=== PATIENT | female | born 1960 | race Caucasian/White ===

== ENCOUNTER 2016-06-17 19:29 | Inpatient (IN) | payer OTHER ==
[~2016-06-17] VITALS: Ht 170.2 cm; Wt 122.4 kg
[~2016-06-17 19:29] MED LIST: ASPI325T32 PO; ATEN50TA PO; CALC-1034 PO; IBUP400T22 PO; KLO5T PO; LISI-567 PO; OMPR20CCR PO; POLY17PO6 PO; PROP20TA5 PO; PRV40T PO; TRIA1TAB2 PO; VENL75CA PO
[2016-06-17 19:32] VITALS: BP 140/98; PULSE 106; RESP 18; O2SAT 94
[2016-06-17 20:09] LABS: BASOPHILS % (AUTO) 0.2 % (0-3); EOSINOPHILS % (AUTO) 0.8 % (0-5); MONOCYTES % (AUTO) 7.6 % (4-12); Mean Corpuscular Hemoglobin 25.8 pg (27.0-35.0); Mean Corpuscular Volume 81.1 fL (81-100); Platelet Count 439 bil/L (150-400)
--- NOTE | 2016-06-17 20:49 | ED.REPORT ---
HPI-Abd Pain F 40 and Over Date of Service Jun 17, 2016 ED Provider: Dr. Jose Ramon Mcdonald MD A 56 year old female with a history of diverticulitis, hypertension, hyperlipidemia, GERD, and complete heart block s/p dual chamber pacemaker presents to the ED complaining of abdominal pain that began 2 days ago. Associated symptoms include nausea, 2 episodes of vomiting, diarrhea, abdominal bloating, productive cough with white sputum, dark stools, and lower back discomfort. The pain initially began as a "shooting" pain in her back and radiated forward to her abdomen. Patient denies any previous similar symptoms and her symptoms have become increasingly worse since onset. She is currently taking iron supplements. Patient denies hematochezia or hematemesis. Nursing Notes Stated Complaint: ABDOMINAL PAIN Chief Complaint: Female Abdominal Pain Nursing Notes Reviewed: Yes Allergies: Coded Allergies: No Known Allergies (Unverified , 02/24/16) Scheduled Aspirin (Aspirin) 81 Mg Tablet 81 MG PO DAILY Atenolol (Atenolol) 25 Mg Tablet 25 MG PO DAILY Cholecalciferol (Vitamin D3) (Vitamin D) 1,000 Unit Tablet 3,000 UNIT PO HS Escitalopram Oxalate (Lexapro) 5 Mg Tablet 5 MG PO DAILY Lisinopril / HCTZ 20-12.5 mg (Lisinopril / HCTZ 20-12.5 mg) 1 Each Tablet 1 EACH PO DAILY Omeprazole (Omeprazole) 20 Mg Capsule.dr 20 MG PO DAILY Pravastatin (Pravachol) 40 Mg Tablet 40 MG PO HS Scheduled PRN Clonazepam (Clonazepam) 0.5 Mg Tablet 0.5 MG PO DAILY PRN PRN For Anxiety Miscellaneous Medications Calcium Carbonate/Vitamin D3 (Calcium 500 + Vit D Caplet) 1 Each Tablet 1 EACH PO General Time Seen by MD: 20:48 Chief Complaint Abdominal pain Hx Obtained From: Patient Arrived By: Walk-in Sudden in Onset?: No Onset Occurred: 2 days ago Symptom Duration: Since onset Progression since Onset: Gradually worsening Location: : Diffuse Quality: Sharp Radiation: : Back Severity: Current: Mild Severity: Maximum: Moderate Associated with: Reports: Back pain, Diarrhea, Nausea, Vomiting, Denies: Hematemesis, Hematochezia, Melena Pertinent Negative: Pt denies other symptoms Recent Healthcare: No recent doctor visit, No recent hospitalization Risk Factors )( AAA Risk Stratification Risk factors reviewed Past Medical History Past Medical History Hiatal hernia Hyperlipidemia Hypertension Anxiety GERD Depression Complete heart block s/p Dual chamber pacemaker Obesity Congenital heart defect: repaired age 5 Obstructive Sleep Apnea Past Surgical History Partial hysterectomy (10/2009) Open heart surgery to repair VSD (5 years old) Dual chamber pacemaker placed September 25, 2012 Smoking History Never Smoker Social History Alcohol Use: Denies alcohol use Drug Use: Denies drug use Other Social History: Good social support, Local resident Ambulatory Status Independent Review of Systems Constitutional: Denies: Chills, Fever Respiratory: Denies: Shortness of breath Cardiovascular: Denies: Chest pain GI: Reports: Abdominal pain, Diarrhea, Melena (Dark Stools ), Nausea, Vomiting , Denies: Hematemesis, Hematochezia Musculoskeletal: Reports: Back pain Complete sys rev & neg: except as marked. Neurologic: Denies: Change LOC Physical Exam Vital Signs Vital Signs (First) Date Time Temp Pulse Resp B/P Pulse Ox O2 Delivery O2 Flow Rate FiO2 06/17/16 19:32 36.5 106 18 140/98 94 Room Air Initial VS: Reviewed Extremities: Vascular intact, Neuro intact, No swelling, No tenderness Skin: Warm, Dry, No cyanosis Neurologic: Alert, Oriented, Nonfocal Psychiatric: Mood/affect normal, Behavior normal, Normal thought content General/Constitutional: Awake, Alert, No acute distress Respiratory / Chest: Atraumatic, Breath sounds NL, Breath sounds = bilat Cardiovascular: Heart rate NL, Regular rhythm, Heart sounds NL Abdomen: Atraumatic, Soft Tenderness/Guarding/Rebound: Positive: Guarding involuntary, Rebound diffuse, Tender diffuse ABDOMEN: Obese Back: Atraumatic, Inspection NL Head / Eyes: Atraumatic, Normocephalic Interpretation & Diagnostics Lab Results Interpretation Result Diagram: 06/17/16199906/17/161999 Test 06/17/16 20:00 06/17/16 21:41 White Blood Count 11.8th/mm3 (3.8-10.1) Red Blood Count 5.08mil/mm3 (3.90-5.20) Hemoglobin 13.1g/dL (12.0-15.6) Hematocrit 41.2% (35.0-46.0) Mean Corpuscular Volume 81.1fL (81-100) Mean Corpuscular Hemoglobin 25.8pg (27.0-35.0) Mean Corpuscular Hemoglobin Concent 31.8% (32.0-37.0) Red Cell Distribution Width 18.7% (12.3-15.4) Platelet Count 439bil/L (150-400) Neutrophils (%) (Auto) 67.0% (40-74) Lymphocytes (%) (Auto) 24.2% (14-46) Monocytes (%) (Auto) 7.6% (4-12) Eosinophils (%) (Auto) 0.8% (0-5) Basophils (%) (Auto) 0.2% (0-3) Sodium Level 139mEq/L (134-144) Potassium Level 4.0mEq/L (3.5-5.2) Chloride Level 98mEq/L (97-108) Carbon Dioxide Level 27mmol/L (18-29) Blood Urea Nitrogen 14mg/dL (6-24) Creatinine 1.06mg/dL (0.57-1.00) Estimat Glomerular Filtration Rate 77mL/min (>59) Glucose Level 140mg/dL (60-99) Calcium Level 10.4mg/dL (8.5-10.1) Magnesium Level 2.2mg/dL (1.6-2.6) Total Bilirubin 0.4mg/dL (0.0-1.2) Aspartate Amino Transf (AST/SGOT) 16U/L (0-50) Alanine Aminotransferase (ALT/SGPT) 14U/L (0-32) Alkaline Phosphatase 162U/L (25-150) Total Protein 7.9g/dL (6.4-8.4) Albumin 4.2g/dL (3.4-5.0) Lipase 29U/L (13-60) Hold Fried Top Tube Received (Received) Urine Color Dark yellow (YELLOW) Urine Appearance Hazy (CLEAR,HAZY) Urine pH 7.0 (5.0-8.0) Urine Specific [place] 1.015 (1.003-1.035) Urine Protein Negativemg/dL (NEG,TRACE) Urine Glucose (UA) Negativemg/dL (NEGATIVE) Urine Ketones Negativemg/dL (NEGATIVE) Urine Occult Blood Negative (NEGATIVE) Urine Nitrite Negative (NEGATIVE) Urine Bilirubin Negative (NEGATIVE) Urine Urobilinogen Normalmg/dL (NORMAL) Urine Leukocyte Esterase Negative (NEGATIVE) Urine RBC 0-2/hpf (0-2) Urine WBC 0-5/hpf (0-5) Urine Epithelial Cells Moderate/hpf (NONE-MOD) Urine Crystals None seen (NONE SEEN) Urine Bacteria Few/hpf (NONE-FEW) Urine Hyaline Casts Occasional/lpf (NONE) Urine Granular Casts None seen (NONE SEEN) Urine Waxy Casts None seen (NONE SEEN) Urine Red Blood Cell Casts None seen (NONE SEEN) Urine White Blood Cell Casts None seen (NONE SEEN) Urine Mucus Present (None Seen) Urine Trichomonas None seen (NONE SEEN) Urine Yeast None (NONE SEEN) Urinalysis Comment None Urine Culture Reflexed Not indicated CT Abd / Pelvis Interpretation IMPRESSION: 1. Sigmoid diverticulitis with mild inflammatory changes. 2. Normal callber appendix. No free air, abscess, or bowel obstruction. Hiatal hernia 3. 10 x 6 mm indeterminate right adrenal nodule. Correlate with any prior to document long-term stability Study type: Abdominal CT IV contrast, Abdom CT oral contrast Interpretation / Wet Read by: Interpret - Radiologist ([facility] ) Re-Eval/Medical Decision Med Decision/Clinical Course 56-year-old presents with abdominal pain that is clinically consistent with diverticulitis, and in fact has diverticulitis in her sigmoid colon with moderate stranding but no perforation and no free air. She is in considerable pain, has a difficult time getting food and fluids down, and will benefit from inpatient hospitalization to establish control. Begun with Levaquin and Flagyl. Admitted in stable condition. Re-Evaluation/Progress : Time of Eval: 23:29 Patient Status: Condition improved Re-Evaluation/Progress Note: Patient is rechecked. She is informed of her lab results, CT results and diagnosis. She is given the option to discharge or admit and patient states that she would prefer to be admitted. All questions are addressed. She understands and agrees with the treatment plan. Consultation : Referral / Consult Name: Patricia Benoit DO Consulted With: Hospitalist Call Returned at: 00:03 [place] Custodian: Will see patient, Agrees with eval, Agrees with plan, Accepts admit Counseled Regarding: Diagnosis, Lab results, Need for admission Discharge & Departure Primary Impression: Diverticulitis Diverticulitis site: unspecified part of intestinal tract Diverticulitis bleeding: without bleeding Diverticulitis complication: without perforation or abscess Qualified Code: K57.92 - Diverticulitis of intestine, part unspecified, without perforation or abscess without bleeding Disposition: ADMITTED TO HOSPITAL Discharge Condition All VS Reviewed: Yes Condition: Stable Referrals: OTHER,PHYSICIAN (PCP) (Family) Johnnyibneel Attestation Portions of this note were transcribed by Miguel Muhammad. I, Dr. Mcdonald personally performed the history, physical exam and medical decision-making; I reviewed and confirmed the accuracy of the information in the transcribed note. Signed by: Radha Sahni, 06/18/16 0000. Jose Ramon Mcdonald MD Jun 17, 2016 20:49 MIGUEL MUHAMMAD Jun 17, 2016 20:57
[2016-06-17 20:55] LABS: Magnesium 2.2 mg/dL (1.6-2.6)
[2016-06-17] MEDS ORDERED: 0.9% Sodium Chloride 1,000 ML IV SCH (21:00)
[2016-06-17] MEDS ORDERED: Ondansetron 2 mg/mL 2 mL Inj IVPUSH ONE (21:00)
[2016-06-17] MEDS ORDERED: HYDROmorphone 1 mg/mL Inj IVPUSH PRN (21:00)
[2016-06-17 22:25] LABS: APPEARANCE,URINE HAZY (CLEAR,HAZY); COLOR,URINE DARK YELLOW (YELLOW)
[2016-06-17 22:26] LABS: OCCULT BLOOD,URINE NEGATIVE (NEGATIVE); UROBILINOGEN,URINE NORMAL (NORMAL)
[2016-06-17 23:16] VITALS: BP 105/74; PULSE 101; RESP 20; O2SAT 94
[2016-06-17] MEDS ORDERED: metroNIDAZOLE Inj 500 MG in IV Premix 1 EACH IV ONE (23:35)
[2016-06-17] MEDS ORDERED: levoFLOXacin Inj 750 MG in IV Premix 1 EACH IV ONE (23:35)
[2016-06-18] VITALS (9 sets, daily range): BP systolic 92–130; BP diastolic 54–81; PULSE 78–110; RESP 14–18; O2SAT 94–97
[2016-06-18] MEDS ORDERED: Alum-Mag Hydrox-Simeth 30 mL Suspension PO PRN (00:10)
[2016-06-18] MEDS ORDERED: Polyethylene Glycol (PEG) 17 Gm Powder PO PRN (00:10)
[2016-06-18] MEDS ORDERED: Ondansetron 2 mg/mL 2 mL Inj IVPUSH PRN (00:10)
[2016-06-18] MEDS ORDERED: ATEN25TA PO (00:58)
[2016-06-18] MEDS ORDERED: ASPI-973 PO (00:58)
[2016-06-18] MEDS ORDERED: OMEP20CA11 PO (00:59)
[2016-06-18] MEDS ORDERED: ESCI5TAB PO (01:00)
[2016-06-18] MEDS ORDERED: LISI1TAB9 PO (01:00)
[2016-06-18] MEDS ORDERED: CALC-78 PO (01:01)
[2016-06-18] MEDS ORDERED: CHOL100043 PO (01:02)
--- NOTE | 2016-06-18 01:29 | NUR ---
admission patient admitted to [facility] rom 246-2. alert and oriented x3. anxious at times. med rec completed. npo. given mouth moisturizer. reviewed fall precautions. verbalized understanding. steady on feet. assisted to bathroom. rates pain to right lateral abd. 5. tolerable. plan to request pain medication from dr paz. no questions at this time. Addendum: 06/18/16 at 0209 by NADEEM WOLFE RN notified Dr Paz no telemetry available at this time patient placed on bedside pulse oximetry. medicated with dilaudid one mg slow iv push started on ns iv fluids care on going.
[2016-06-18] MEDS: 0.9% Sodium Chloride 1,000 ML IV SCH ×3 (02:07→17:17)
[2016-06-18] MEDS: HYDROmorphone 1 mg/mL Inj IVPUSH PRN ×2 (02:07→11:04)
--- NOTE | 2016-06-18 02:15 | NUR ---
sleep apnea patiient reports eligio. does not use machine at home. makes her "caustrophobic." placed on 2 liters nc. 95%. bedside pulse oximetry.
--- NOTE | 2016-06-18 04:15 | NUR ---
tele placed on tele box. SR rate 98
--- NOTE | 2016-06-18 04:23 | PCM.HPMED ---
Subjective Date of Service Jun 18, 2016 Primary Provider: Admitting Physician: Patricia Benoit DO Primary Care Physician: Other,Physician Attending Physician: Patricia Benoit DO Chief Complaint: Abdominal pain History of Present Illness: Patient is a 56-year-old female with history of diverticulitis, hypertension, dyslipidemia, complete heart block s/p PPM and GERD presenting with abdominal pain. Patient reports onset of abdominal pain about two days ago in conjunction with flu-like symptoms - headache, fatigue and some chills. She reports similar pain in the past when she had an episode of diverticulitis. Patient states the pain is diffuse throughout her abdomen with radiation to her back and left flank. Patient also endorses associated bloating, diarrhea, nausea, decreased appetite and emesis. Patient also reports the development of a "new vein" on her abdomen from her retching. She otherwise denies fever, hematochezia, melena , dizziness, lightheadedness, chest pain. Patient states the pain progressively worsened prompting her to visit the ED for further evaluation. CT abdomen and pelvis reads sigmoid diverticulitis with mild inflammatory changes. Patient was started on levofloxacin and metronidazole for suspected diverticulitis. In the ED, vitals: temp 36.5, HR 106, RR 18 satting 94% on room air, BP 140/98. Notable labs: WBC 11.8, creatinine 1.06, calcium 10.4. Review of Systems: A comprehensive review of systems was conducted with the patient and found to be negative except as above in the History of Present Illness. Allergies Coded Allergies: No Known Allergies (Unverified , 02/24/16) Home Medications Atenolol 25mg daily ASA 81mg daily Lisinopril-HCTZ/10mg-25mg daily Omeprazole 20mg daily Pravastatin 40mg daily Clonazepam 0.5mg PRN (max 10 doses per month) Calcium 500mg/Vitamin D 200iu Lexapro 5mg daily PMH History of diverticulitis Hypertension Dyslipidemia GERD Heart block s/p PPM Anxiety . Surgical History Hysterectomy Ventricular septal defect repair Pacemaker placement Family History Mother in her 40s from aneurysm Father in his 60s with ESRD Sister with breast cancer Social History Occupation: Unemployed, former cook Hx Alcohol Use: Yes (occasional) Hx Substance Use: No Hx Tobacco Use: No Smoking Status: Never Smoker Living Arrangement: Other (with Boyfriend) Exam Vital Signs Vital Sign - Last Date Time Temp Pulse Resp B/P Pulse Ox O2 Delivery O2 Flow Rate FiO2 06/18/16 01:08 36.9 110 18 104/70 95 Room Air Intake and Output 06/17/16 06/17/16 06/18/16 Cumulative From/Thru 15:00 23:00 07:00 06/17/16 21:45 - 06/18/16 01:11 Intake Total 1000 ml 1000 ml Balance 1000 ml 1000 ml Intake IV Total 1000 ml 1000 ml Exam General: Patient lying comfortably in bed. No acute distress, well-developed, well-nourished, appropriately interactive HEENT: Normocephalic, atraumatic. External ears without defect. Pupils equal, round, and reactive to light. Anicteric sclerae, moist conjunctivae, and no lid lag. Oropharynx free of erythema and cobble stoning with moist mucosa. Neck: Supple. No lymphadenopathy or thyromegaly. Cardiovascular: Regular rate and rhythm with no murmurs, rubs, or gallops appreciated Pulmonary: Clear to auscultation bilaterally with no crackles, wheezes, or rhonchi. Normal respiratory effort with no use of accessory muscles. Abdomen: Bowel tones present. Obese, soft, nondistended. Tenderness to palpation diffusely. Extremities: No clubbing, cyanosis, edema, or lymphadenopathy appreciated. Skin: Normal temperature, turgor, and texture; no rash, ulcers, or subcutaneous nodules appreciated. Neurological: Cranial nerves grossly intact. Psychiatric: Normal mood and affect. Alert and oriented to person, place, and time. Lab and Diagnostics Result Diagram: 06/17/16199906/17/161999 X-Rays, CTs and MRIs Exam date 06/17/2016 CT ABDOMEN AND PELVIS CONCLUSION: 1. Sigmoid diverticulitis with mild inflammatory changes 2 .Normal caliber appendix. No free air, abscess, or bowel obstruction. Hiatal hernia. 3. 10x6 mm indeterminate right adrenal nodule. Correlate with any prior to document long-term stability. Radiologist: Jorge Rascon MD Assessment & Plan Patient is a 56-year-old female with history of diverticulitis, hypertension, dyslipidemia, complete heart block s/p PPM and GERD presenting with abdominal pain and admitted for diverticulitis. 1. Acute diverticulitis. Present on admission. Active -Patient reports prior episode of diverticulitis -CT abdomen pelvis reads sigmoid diverticulitis with mild inflammatory changes -NPO -NS 125cc/hr -Pain control with Dilaudid PRN -Levofloxacin and metronidazole -Follow clinically 2. Acute kidney injury. Present on admission. Active -Creatinine 1.06 -Likely secondary to decreased intake and emesis -IV fluids -Avoid nephrotoxins -Follow with CMP 3. Hypercalcemia, acute. Present on admission. Active -Ca 10.4 -Possible hemoconcentration, iatrogenic (hydrochlorothiazide), hyperparathyroidism, hypervitaminosis -Repeat CMP. If elevation persists then consider PTH level 4. Hypertension, chronic. Present on admission -Patient currently normotensive -Holding lisinopril-HCTZ due to CHARLEY, holding atenolol given relatively low BP -Follow with vitals and restart antihypertensive with resolution of CHARLEY 5. Dyslipidemia, chronic. Present on admission -Continue with home dose statin 6. GERD, chronic. Present on admission -Continue home dose PPI 7. Anxiety, chronic. Present on admission -Clonazepam 0.5mg daily PRN 8. Complete heart block s/p dual chamber PPM -Presumed stable 9. Obstructive sleep apnea, chronic. Present on admission -Patient does not use CPAP due to discomfort Patient Status: Patient is admitted under inpatient status with expected length of stay greater than 2 midnights due to severity of presenting symptoms, risk of adverse event, and complexity of treatment plan. VTE Prophylaxis: Sub-Q Heparin (Unfractionated) Resuscitation Status: CPR: Attempt Resuscitation Attending Statement The patient was seen and examined together with house staff on 06/18/2016 and I agree with the history, exam and plan as outlined in the note above. Geo Paz DO Jun 18, 2016 04:02 Patricia Benoit DO Jun 18, 2016 04:54
--- NOTE | 2016-06-18 05:22 | NUR ---
urine output: patient with low urine output. 100ml. bladder scanner shows 0 residual volume. bp 94/54 hr [address] Geo Paz. received order for ns 500ml bolus. care ongoing.
[2016-06-18] MEDS ORDERED: 0.9% Sodium Chloride 500 ML IV ONE ×2 (05:35→11:55)
--- NOTE | 2016-06-18 07:56 | DRSVH ---
PROCEDURE: CT ABDOMEN AND PELVIS WITH CONTRAST ([id number]) INDICATIONS: pain, probable diverticulitis TECHNIQUE: After the administration of intravenous contrast, 5 mm thick sections acquired from the diaphragm to the symphysis. 5 mm coronal and sagittal reformats were acquired. For radiation dose reduction, the following was used: automated exposure control, adjustment of mA and/or kV according to patient siz e. COMPARISON: [facility], CT, ABDOMEN/PELVIS WITH CONTRAST, 07/01/2014, 22:20. FINDINGS: Image quality: Excellent. ABDOMEN: Lung bases: Lung bases are clear. Heart size is normal. Solid organs: Liver and spleen are normal in size and enhancement. Gallbladder is unremarkable. Bi liary system is non dilated. Pancreas enhances normally. Right adrenal nodule, unchanged from 07/01/14 . Kidneys demonstrate normal size and enhancement, without hydronephrosis. Peritoneum and bowel: Bowel loops are nonobstructed. There is a thickened loop of distal descending/ proximal sigmoid colon with diverticula and surrounding inflammatory change. There is no abscess form ation or free air identified. There several scattered lymph nodes, subcentimeter in size identified i mmediately superior to the area of inflammation. Nodes and vessels: No retroperitoneal or mesenteric adenopathy by size criteria. Aorta and inferior vena cava are normal in size. Miscellaneous: No ventral hernias. Prominent hiatal hernia. PELVIS: Genitourinary: Bladder wall thickness is normal. Miscellaneous: No inguinal hernias or adenopathy. Bones: No suspicious bony lesions. No vertebral body compression fractures. IMPRESSION: 1. Focal area of thickened distal descending/proximal sigmoid colonic bowel with diverticula and heriberto colonic thickening most suggestive of colitis secondary to diverticulitis. No peridiverticular absces s. As noted above, there are pericolonic lymph nodes identified. These could be reactive in nature. However, repeat imaging is recommended after appropriate therapy to document resolution and exclude u nderlying presence of neoplasm. Dictated by: Katherin Sommer M.D. on 06/18/2016 at 7:50 Approved by: Katherin Sommer M.D. on 06/18/2016 at 7:55
[2016-06-18] MEDS: Heparin 5,000 Unit/mL Inj SUBQ SCH ×2 (08:04→16:00)
[2016-06-18] MEDS: metroNIDAZOLE Inj 500 MG in IV Premix 1 EACH IV SCH ×2 (08:04→16:01)
[2016-06-18] MEDS: Pantoprazole 40 mg ER24 Tablet PO SCH (08:04)
[2016-06-18] MEDS ORDERED: Influenza (Adult) Vaccine 0.5 mL Syringe IM ONE (08:30)
[2016-06-18 09:12] LABS: BASOPHILS % (AUTO) 0.2 % (0-3); EOSINOPHILS % (AUTO) 0.4 % (0-5); MONOCYTES % (AUTO) 9.1 % (4-12); Mean Corpuscular Hemoglobin 25.7 pg (27.0-35.0); Mean Corpuscular Volume 82.9 fL (81-100); NEUTROPHILS % (AUTO) 74.2 % (40-74); Platelet Count 353 bil/L (150-400)
--- NOTE | 2016-06-18 10:40 | NUR ---
Morning Rounds Staffed patient's case with case management and Dr. Segura. Plan to change patient admission status from inpatient to observation. No plan for discharge discussed, MD to assess patient.
--- NOTE | 2016-06-18 13:15 | NUR ---
Social Work: Screening Data: Pt is a 56 y/o female admitted for acute diverticulitis. Pt's PCP is not listed, pt's insurance is [employer]. Pt's readmit score not listed. EMR reviewed. No d/c planning needs anticipated at this time. SPEECH PATHOLOGY TEACHER will continue to follow if needs arise. Assessment: Pt who is independent at baseline. Plan: Pt will d/c home via POV when medically stable. No d/c planning needs anticipated at this time. SPEECH PATHOLOGY TEACHER will continue to follow if needs arise. SILVIA Lisa
--- NOTE | 2016-06-18 15:58 | NUR ---
Elevated Temp Contacted Dr. Segura with the following cook page: Patient's current temp is 37.5, she does not have any Tylenol ordered at this time. Just making you aware of temp trending up, please advise of any med changes. Thank you. Amina MON
--- NOTE | 2016-06-18 16:58 | NUR ---
Temp Recheck Contacted Dr. Segura with the following cook page: Just to make you aware, recheck of patient's temp since administering Tylenol is 100.3. Thank you. Amina MON
[2016-06-18] MEDS: levoFLOXacin Inj 750 MG in IV Premix 1 EACH IV SCH (23:44)
[2016-06-19] VITALS (7 sets, daily range): BP systolic 123–157; BP diastolic 79–94; PULSE 79–99; RESP 16–18; O2SAT 93–98
[2016-06-19] MEDS: Heparin 5,000 Unit/mL Inj SUBQ SCH ×3 (01:26→16:21)
[2016-06-19] MEDS: metroNIDAZOLE Inj 500 MG in IV Premix 1 EACH IV SCH ×3 (01:34→16:22)
[2016-06-19] MEDS: 0.9% Sodium Chloride 1,000 ML IV SCH ×3 (01:38→21:51)
--- NOTE | 2016-06-19 03:53 | NUR ---
Anxiety/Temp/Tele C/o anxiety and received PRN Clonazepam with a good effect per Pt. Temp 36.9 afebrile. Tele V-paced with PVCs HR 80s. Will continue to monitor for s/sx of anxiety, telemetry, and an increase in temperature.
[2016-06-19 07:37] LABS: BASOPHILS % (AUTO) 0.1 % (0-3); EOSINOPHILS % (AUTO) 1.6 % (0-5); MONOCYTES % (AUTO) 6.8 % (4-12); Mean Corpuscular Hemoglobin 25.7 pg (27.0-35.0); Mean Corpuscular Volume 82.6 fL (81-100); NEUTROPHILS % (AUTO) 64.9 % (40-74); Platelet Count 307 bil/L (150-400)
[2016-06-19] MEDS: Pantoprazole 40 mg ER24 Tablet PO SCH (07:42)
--- NOTE | 2016-06-19 08:58 | NUR ---
Temp Recheck Patient's temp was 37.5 earlier, then Tylenol was given. Recheck approx an hour after Tylenol is 37.0.
--- NOTE | 2016-06-19 10:45 | NUR ---
Morning Rounds Staffed patient's case with Dr. Segura and case management. Dr. Segura to see patient this morning and will possibly advance patient's diet today. No plan to discharge at this time.
--- NOTE | 2016-06-19 11:53 | PCM.PNMED ---
Subjective Date of Service Jun 19, 2016 Subjective Patient notes feeling somewhat improved this morning, she was having more sweats and chills earlier in the evening but those resolved overnight and this morning have not returned. She still has minimal appetite and significant abdominal tenderness but this too has improved since her admission. Denies any nausea or vomiting. He is also not have bowel movements and Monday. Chest pain shortness of breath other acute complaints at this time. Exam Vital Signs Vital Sign - Last Date Time Temp Pulse Resp B/P Pulse Ox O2 Delivery O2 Flow Rate FiO2 06/19/16 09:39 80 06/19/16 08:57 37.0 06/19/16 07:36 16 135/88 97 Room Air Intake and Output 06/18/16 06/18/16 06/19/16 Cumulative From/Thru 15:00 23:00 07:00 06/17/16 21:45 - 06/19/16 06:32 Intake Total 1376 ml 1464 ml 4264 ml Output Total 700 ml 950 ml 1750 ml Balance 676 ml 514 ml 2514 ml Intake Oral 0 ml 100 ml 100 ml IV Total 1376 ml 1344 ml 4144 ml Tube Irrigant 20 ml 20 ml Output Urine Total 700 ml 950 ml 1750 ml General: Alert, Oriented X3, Cooperative, Mild Distress, Other (obese female lying in hospital bed without diaphoresis/sweats, or chills) Eyes: PERRLA Mouth: Mucous Membr Moist/[place] Chest & Lungs: Clear to auscultation & percussion Cardiovascular: Regular Rate/Rhythm Abdomen: Tender, Non-distended, Other (hypoactive bowel sounds without overt organomegaly noted on palpation. Abdomen is obese) Extremities: No cyanosis/clubbing/edma bilat Neurological: Grossly Neurologically Intact IVs and Medications Medications Reviewed: Medications were reviewed in detail Lab and Diagnostics Result Diagram: 06/19/1671606/19/16716 X-Rays, CTs and MRIs Exam date 06/17/2016 CT ABDOMEN AND PELVIS CONCLUSION: 1. Sigmoid diverticulitis with mild inflammatory changes 2 .Normal caliber appendix. No free air, abscess, or bowel obstruction. Hiatal hernia. 3. 10x6 mm indeterminate right adrenal nodule. Correlate with any prior to document long-term stability. Radiologist: Jorge Rascon MD Assessment & Plan Patient is a 56-year-old female with history of diverticulitis, hypertension, dyslipidemia, complete heart block s/p PPM and GERD presenting with abdominal pain and admitted for diverticulitis. 1. Acute diverticulitis, associated with inability to tolerate by mouth , mild leukocytosis , tachycardia , elevated temperature :Present on admission. Active -Patient reports prior episode of diverticulitis -CT abdomen pelvis reads sigmoid diverticulitis with mild inflammatory changes -Advancing diet to clears, plan to advance further as tolerated. -Decrease NS to 100cc/hr -Pain control with Dilaudid PRN -Levofloxacin and metronidazole continued IV -Follow clinically 2. Acute kidney failure Present on admission. Active -Creatinine had subsequently increased to 1.6, has now normalized with aggressive IV hydration. -Likely secondary to decreased intake and emesis -IV fluids continue as diet advanced -Avoid nephrotoxins -Follow with CMP 3. Hypercalcemia, acute. Present on admission. Active - Noted on admission likely secondary to hemoconcentration now resolved with hydration. 4. Hypertension, chronic. Present on admission -Patient currently normotensive -Continue Holding lisinopril-HCTZ due to CHARLEY, holding atenolol given relatively low BP -Follow with vitals and restart antihypertensive with resolution of CHARLEY 5. Dyslipidemia, chronic. Present on admission -Continue with home dose statin 6. GERD, chronic. Present on admission -Continue home dose PPI 7. Anxiety, chronic. Present on admission -Clonazepam 0.5mg daily PRN 8. Complete heart block s/p dual chamber PPM -Presumed stable 9. Obstructive sleep apnea, chronic. Present on admission -Patient does not use CPAP due to discomfort Disposition: We will continue to advance patient's diet as tolerated, anticipate transition to oral antibiotics and discharge in 1-2 days as patient clinically improves. Pain Evaluation: Adequate Pain Control VTE Prophylaxis: Sub-Q Heparin (Unfractionated) Resuscitation Status: CPR: Attempt Resuscitation Time spent 30 minutes Adan Segura DO Jun 19, 2016 11:53
--- NOTE | 2016-06-19 14:17 | NUR ---
Tele removal order for shower Contacted Dr. Segura with the following cook page: Patient would like to shower, can tele be removed long enough for shower. Please advise. Thank you. Amina MON
[2016-06-19] MEDS: levoFLOXacin Inj 750 MG in IV Premix 1 EACH IV SCH (23:40)
[2016-06-20 00:33] VITALS: BP 120/82; PULSE 81; RESP 16; O2SAT 97
[2016-06-20] MEDS: metroNIDAZOLE Inj 500 MG in IV Premix 1 EACH IV SCH ×3 (01:17→16:14)
[2016-06-20] MEDS: Heparin 5,000 Unit/mL Inj SUBQ SCH ×3 (01:17→16:11)
--- NOTE | 2016-06-20 02:03 | NUR ---
O2 Pt hasn't needed any supplemental oxygen, saturations have been in janeth 90's on ra. Will continue to monitor.
[2016-06-20 04:35] VITALS: BP 122/81; PULSE 76; RESP 14; O2SAT 96
[2016-06-20 07:37] LABS: BASOPHILS % (AUTO) 0.5 % (0-3); EOSINOPHILS % (AUTO) 3.3 % (0-5); MONOCYTES % (AUTO) 7.3 % (4-12); Mean Corpuscular Hemoglobin 25.5 pg (27.0-35.0); Mean Corpuscular Volume 82.7 fL (81-100); NEUTROPHILS % (AUTO) 58.7 % (40-74); Platelet Count 288 bil/L (150-400)
[2016-06-20] MEDS: 0.9% Sodium Chloride 1,000 ML IV SCH ×2 (08:12→15:14)
[2016-06-20 08:15] VITALS: BP 162/102; PULSE 79; RESP 18; O2SAT 96
[2016-06-20] MEDS: Pantoprazole 40 mg ER24 Tablet PO SCH (08:15)
--- NOTE | 2016-06-20 09:32 | NUR ---
Increase BP Dr Montgomery notified of increase BP. Requested restart of home medications. Addendum: 06/20/16 at 1700 by ANNEL MCHUGH RN Home medications restarted.
[2016-06-20 13:30] VITALS: BP 157/94; PULSE 82; RESP 20; O2SAT 96
[2016-06-20] MEDS ORDERED: HCTZ PO SCH (14:45)
[2016-06-20] MEDS ORDERED: LISINOPRIL PO SCH (14:45)
--- NOTE | 2016-06-20 16:11 | NUR ---
Social Work-readiness for discharge: Data:EMR Reviewed. PT is on day 3 of hospitalization for acute diverticulitis per H&P. Pt is not medically stable, anticipate tomorrow. working on advancing pt's diet. Pt resides at home and has been up independent in her room. No anticipated discharge needs. SW will continue to follow if needs arise. Assessment:Pt who is independent at baseline. Plan:Pt to discharge home when medically stable via POV. No anticipated discharge needs. SW will continue to follow if needs arise. SILVIA Uribe
[2016-06-20 16:30] VITALS: BP 150/91; PULSE 95; O2SAT 95
--- NOTE | 2016-06-20 16:31 | PCM.PNMED ---
Subjective Date of Service Jun 20, 2016 Subjective Afebrile. Lower abdominal pain continues to improve. Started on liquid diet. Advancing as tolerated Exam Vital Signs Vital Sign - Last Date Time Temp Pulse Resp B/P Pulse Ox O2 Delivery O2 Flow Rate FiO2 06/20/16 13:30 36.9 82 20 157/94 96 Room Air Intake and Output 06/19/16 06/19/16 06/20/16 Cumulative From/Thru 15:00 23:00 07:00 06/17/16 21:45 - 06/20/16 06:29 Intake Total 1733 ml 1762 ml 7759 ml Output Total 900 ml 2000 ml 4650 ml Balance 833 ml -238 ml 3109 ml Intake Oral 480 ml 300 ml 880 ml IV Total 1253 ml 1462 ml 6859 ml Tube Irrigant 20 ml Output Urine Total 900 ml 2000 ml 4650 ml # Voids 1 1 Exam General: Alert, Oriented X3, Cooperative, Mild Distress, Other (obese female lying in hospital bed without diaphoresis/sweats, or chills) Eyes: PERRLA Mouth: Mucous Membr Moist/[place] Chest & Lungs: Clear to auscultation & percussion Cardiovascular: Regular Rate/Rhythm Abdomen: Tender, Non-distended, Other (hypoactive bowel sounds without overt organomegaly noted on palpation. Abdomen is obese) Extremities: No cyanosis/clubbing/edma bilat Neurological: Grossly Neurologically Intact IVs and Medications Medications Reviewed: Medications were reviewed in detail Lab and Diagnostics Result Diagram: 06/20/16 0710 06/20/16 0710 X-Rays, CTs and MRIs Exam date 06/17/2016 CT ABDOMEN AND PELVIS CONCLUSION: 1. Sigmoid diverticulitis with mild inflammatory changes 2 .Normal caliber appendix. No free air, abscess, or bowel obstruction. Hiatal hernia. 3. 10x6 mm indeterminate right adrenal nodule. Correlate with any prior to document long-term stability. Radiologist: Jorge Rascon MD Assessment & Plan Patient is a 56-year-old female with history of diverticulitis, hypertension, dyslipidemia, complete heart block s/p PPM and GERD presenting with abdominal pain and admitted for diverticulitis. 1. Acute diverticulitis, associated with inability to tolerate by mouth , mild leukocytosis , tachycardia , elevated temperature :Present on admission. Active -Patient reports prior episode of diverticulitis -CT abdomen pelvis reads sigmoid diverticulitis with mild inflammatory changes -Advancing diet as tolerated. -Discontinued NS to 100cc/hr -Pain control with Dilaudid PRN -Levofloxacin and metronidazole continued IV -Follow clinically 2. Acute kidney failure Present on admission. Active,resolved -Initial Creatinine 1.6, has now normalized with aggressive IV hydration. -Likely secondary to decreased intake and emesis - diet advanced -Avoid nephrotoxins -Follow with CMP 3. Hypercalcemia, acute. Present on admission. Active - Noted on admission likely secondary to hemoconcentration now resolved with hydration. 4. Hypertension, chronic. Present on admission -Patient currently normotensive -resume lisinopril-HCTZ,atenolol 5. Dyslipidemia, chronic. Present on admission -Continue with home dose statin 6. GERD, chronic. Present on admission -Continue home dose PPI 7. Anxiety, chronic. Present on admission -Clonazepam 0.5mg daily PRN 8. Complete heart block s/p dual chamber PPM -Presumed stable 9. Obstructive sleep apnea, chronic. Present on admission -Patient does not use CPAP due to discomfort Disposition: We will continue to advance patient's diet as tolerated, anticipate transition to oral antibiotics and discharge tomorrow VTE Prophylaxis: Sub-Q Heparin (Unfractionated) VTE Mechanical Devices: Intermittant Pneumatic CD Resuscitation Status: CPR: Attempt Resuscitation Bakari Montgomery MD Jun 20, 2016 16:31
[2016-06-20 20:33] VITALS: BP 118/78; PULSE 78; RESP 16; O2SAT 96
[2016-06-20] MEDS: levoFLOXacin Inj 750 MG in IV Premix 1 EACH IV SCH (23:58)
[2016-06-21] MEDS: metroNIDAZOLE Inj 500 MG in IV Premix 1 EACH IV SCH ×2 (01:55→08:03)
[2016-06-21] MEDS: Heparin 5,000 Unit/mL Inj SUBQ SCH ×2 (01:55→07:43)
--- NOTE | 2016-06-21 04:00 | NUR ---
GI / Eager for d/c Pt had frequent semi-loose stools yesterday, only one tonight, appears soft. Pt has no abd pain and is tolerating food well. Pt is eager for d/c which appears very plausible at this time.
[2016-06-21 06:09] VITALS: BP 123/77; PULSE 86; RESP 16; O2SAT 97
[2016-06-21] MEDS: Pantoprazole 40 mg ER24 Tablet PO SCH (07:43)
[2016-06-21 08:49] VITALS: BP 152/92; PULSE 72; RESP 16; O2SAT 96
[2016-06-21] MEDS ORDERED: LEVO750T9 PO (10:51)
[2016-06-21] MEDS ORDERED: METR500T19 PO (10:51)
--- NOTE | 2016-06-21 10:58 | PCM.DIMED ---
Discharge Instructions Date of Service Jun 21, 2016 Dates of Hospitalization Jun 17, 2016 at 23:42 Discharge Diagnosis Discharge Diagnosis acute diverticulitis Medication Instructions Please continue two antibiotics for 10 more days take Levaquin 750mg daily take metronidazole 500mg three times per day Diet No restrictions Activity No restrictions Call your provider Vomitting, Excessive diarrhea Patient Instructions You were hospitalized with abdominal pain, found to have diverticulitis, therefore treated with antibiotics and responded well Please follow medicine instruction as above Follow-up plan Please follow up with your doctor Jose Marroquin in 2weeks, Please follow up with GI doctor as scheduled for colonoscopy, endoscopy Follow-up with PCP in: 1 week Ann Lowry MD Jun 21, 2016 10:58
--- NOTE | 2016-06-21 12:53 | NUR ---
DC Pt A&O. Steady gait. Independent in room. All teaching, and materials understood. Family at bedside for teaching. Prescriptions faxed to pharmacy, and hard copies sent with patient. All belongings accounted for. Pt transported to front loop via wc by , was waiting with car.
--- NOTE | 2016-06-21 12:55 | NUR ---
Social Work- discharge: Data:EMR Reviewed. Pt is on day 4 of hospitalization for acute diverticulitis per H&P.Pt is ready to discharge today. Pt resides at home and has been up independent in her room. No discharge needs identified. All updated and agreeable to plan. Assessment:Pt who is independent at baseline. Plan:Pt to discharge home today via POV. No discharge needs identified. All updated and agreeable to plan. Cheli VannMS
--- NOTE | 2016-06-21 21:03 | PCM.DC.MED ---
Discharge Summary Date of Service Jun 21, 2016 Dates of Hospitalization Date of Hospital Admission Jun 17, 2016 at 23:42 Date of Discharge: Jun 21, 2016 Providers: Admitting Physician: Patricia Benoit DO Primary Care Physician: Other,Physician Attending Physician: Patricia Benoit DO Diagnosis at Time of Discharge Diagnosis at Time of Discharge 1. Acute diverticulitis 2. prerenal CHARLEY due to GI fluid loss 3. Hypertension 4. Dyslipidemia 5. GERD 6. Anxiety 7. Complete heart block s/p dual chamber PPM 8. Obstructive sleep apnea Procedures XRay, CTs & MRIs PROCEDURE: CT ABDOMEN AND PELVIS WITH CONTRAST ([id number]) INDICATIONS: pain, probable diverticulitis TECHNIQUE: After the administration of intravenous contrast, 5 mm thick sections acquired from the diaphragm to the symphysis. 5 mm coronal and sagittal reformats were acquired. For radiation dose reduction, the following was used: automated exposure control, adjustment of mA and/or kV according to patient size. COMPARISON: [facility], CT, ABDOMEN/PELVIS WITH CONTRAST, 07/01/2014, 22: 20. FINDINGS: Image quality: Excellent. ABDOMEN: Lung bases: Lung bases are clear. Heart size is normal. Solid organs: Liver and spleen are normal in size and enhancement. Gallbladder is unremarkable. Biliary system is non dilated. Pancreas enhances normally. Right adrenal nodule, unchanged from 07/01/14. Kidneys demonstrate normal size and enhancement, without hydronephrosis. Peritoneum and bowel: Bowel loops are nonobstructed. There is a thickened loop of distal descending/proximal sigmoid colon with diverticula and surrounding inflammatory change. There is no abscess formation or free air identified. There several scattered lymph nodes, subcentimeter in size identified immediately superior to the area of inflammation. Nodes and vessels: No retroperitoneal or mesenteric adenopathy by size criteria. Aorta and inferior vena cava are normal in size. Miscellaneous: No ventral hernias. Prominent hiatal hernia. PELVIS: Genitourinary: Bladder wall thickness is normal. Miscellaneous: No inguinal hernias or adenopathy. Bones: No suspicious bony lesions. No vertebral body compression fractures. IMPRESSION: 1. Focal area of thickened distal descending/proximal sigmoid colonic bowel with diverticula and pericolonic thickening most suggestive of colitis secondary to diverticulitis. No peridiverticular abscess. As noted above, there are pericolonic lymph nodes identified. These could be reactive in nature. However, repeat imaging is recommended after appropriate therapy to document resolution and exclude underlying presence of neoplasm. Dictated by: Katherin Sommer M.D. on 06/18/2016 at 7:50 Approved by: Katherin Sommer M.D. on 06/18/2016 at 7:55 Brief History HPI obtained by Dr. Benoit Patient is a 56-year-old female with history of diverticulitis, hypertension, dyslipidemia, complete heart block s/p PPM and GERD presenting with abdominal pain. Patient reports onset of abdominal pain about two days ago in conjunction with flu-like symptoms - headache, fatigue and some chills. She reports similar pain in the past when she had an episode of diverticulitis. Patient states the pain is diffuse throughout her abdomen with radiation to her back and left flank. Patient also endorses associated bloating, diarrhea, nausea, decreased appetite and emesis. Patient also reports the development of a "new vein" on her abdomen from her retching. She otherwise denies fever, hematochezia, melena , dizziness, lightheadedness, chest pain. Patient states the pain progressively worsened prompting her to visit the ED for further evaluation. CT abdomen and pelvis reads sigmoid diverticulitis with mild inflammatory changes. Patient was started on levofloxacin and metronidazole for suspected diverticulitis. In the ED, vitals: temp 36.5, HR 106, RR 18 satting 94% on room air, BP 140/98. Notable labs: WBC 11.8, creatinine 1.06, calcium 10.4. Hospital Course Patient is a 56-year-old female with history of diverticulitis, hypertension, dyslipidemia, complete heart block s/p PPM and GERD presenting with abdominal pain and admitted for diverticulitis. 1. Acute diverticulitis, associated with inability to tolerate by mouth , mild leukocytosis , tachycardia , elevated temperature :Present on admission. Patient reports prior episode of diverticulitis. CT abdomen pelvis reads sigmoid diverticulitis with mild inflammatory changes. pt was started on Levofloxacin and metronidazole, diet was advanced. pt tolerated well, clinically improved with abx. therefore deemed safe for d/c with oral Levaquin and flagyl to finish 14days course. Patient already scheduled to see GI doctor for colonoscopy, this will be rescheduled upon d/c. 2. prerenal CHARLEY due to GI fluid loss, resolved with IVF 3. Hypertension, chronic. normotensive, resumed lisinopril-HCTZ,atenolol 4. Dyslipidemia, chronic. Present on admission, Continued with home dose statin 5. GERD, chronic. Present on admission, Continued home dose PPI 6. Anxiety, chronic. Present on admission, Clonazepam 0.5mg daily PRN 7. Complete heart block s/p dual chamber PPM. Presumed stable 8. Obstructive sleep apnea, chronic. Present on admission. Patient does not use CPAP due to discomfort Exam Vital Signs (Last) Date Time Temp Pulse Resp B/P Pulse Ox O2 Delivery O2 Flow Rate FiO2 06/21/16 08:49 36.6 72 16 152/92 96 Room Air Exam NAD, comfortable, ambulate with normal gait MMM, no jvd RRR, nl s1 s2 no mrg CTAB no w,c S,ND,NT,BS+ warm, no edema Test 06/17/16 20:00 06/17/16 21:41 06/18/16 00:23 06/20/16 07:10 Magnesium Level 2.2mg/dL (1.6-2.6) Lipase 29U/L (13-60) Hold Fried Top Tube Received (Received) Urine Color Dark yellow (YELLOW) Urine Appearance Hazy (CLEAR,HAZY) Urine pH 7.0 (5.0-8.0) Urine Specific [place] 1.015 (1.003-1.035) Urine Protein Negativemg/dL (NEG,TRACE) Urine Glucose (UA) Negativemg/dL (NEGATIVE) Urine Ketones Negativemg/dL (NEGATIVE) Urine Occult Blood Negative (NEGATIVE) Urine Nitrite Negative (NEGATIVE) Urine Bilirubin Negative (NEGATIVE) Urine Urobilinogen Normalmg/dL (NORMAL) Urine Leukocyte Esterase Negative (NEGATIVE) Urine RBC 0-2/hpf (0-2) Urine WBC 0-5/hpf (0-5) Urine Epithelial Cells Moderate/hpf (NONE-MOD) Urine Crystals None seen (NONE SEEN) Urine Bacteria Few/hpf (NONE-FEW) Urine Hyaline Casts Occasional/lpf (NONE) Urine Granular Casts None seen (NONE SEEN) Urine Waxy Casts None seen (NONE SEEN) Urine Red Blood Cell Casts None seen (NONE SEEN) Urine White Blood Cell Casts None seen (NONE SEEN) Urine Mucus Present (None Seen) Urine Trichomonas None seen (NONE SEEN) Urine Yeast None (NONE SEEN) Urinalysis Comment None Urine Culture Reflexed Not indicated Lactic Acid Level 1.2mmol/L (0.4-2.0) White Blood Count 4.3th/mm3 (3.8-10.1) Red Blood Count 3.65mil/mm3 (3.90-5.20) Hemoglobin 9.3g/dL (12.0-15.6) Hematocrit 30.2% (35.0-46.0) Mean Corpuscular Volume 82.7fL (81-100) Mean Corpuscular Hemoglobin 25.5pg (27.0-35.0) Mean Corpuscular Hemoglobin Concent 30.8% (32.0-37.0) Red Cell Distribution Width 18.2% (12.3-15.4) Platelet Count 288bil/L (150-400) Neutrophils (%) (Auto) 58.7% (40-74) Lymphocytes (%) (Auto) 29.7% (14-46) Monocytes (%) (Auto) 7.3% (4-12) Eosinophils (%) (Auto) 3.3% (0-5) Basophils (%) (Auto) 0.5% (0-3) Sodium Level 142mEq/L (134-144) Potassium Level 4.2mEq/L (3.5-5.2) Chloride Level 109mEq/L (97-108) Carbon Dioxide Level 23mmol/L (18-29) Blood Urea Nitrogen 5mg/dL (6-24) Creatinine 0.63mg/dL (0.57-1.00) Estimat Glomerular Filtration Rate 140mL/min (>59) Glucose Level 97mg/dL (60-99) Calcium Level 8.5mg/dL (8.5-10.1) Total Bilirubin 0.2mg/dL (0.0-1.2) Aspartate Amino Transf (AST/SGOT) 15U/L (0-50) Alanine Aminotransferase (ALT/SGPT) 8U/L (0-32) Alkaline Phosphatase 95U/L (25-150) Total Protein 5.4g/dL (6.4-8.4) Albumin 3.2g/dL (3.4-5.0) Discharge Medications Discharge Medications Aspirin (Aspirin) 81 Mg Tablet 81 MG PO DAILY (Reported) Atenolol (Atenolol) 25 Mg Tablet 25 MG PO DAILY (Reported) Cholecalciferol (Vitamin D3) (Vitamin D) 1,000 Unit Tablet 3,000 UNIT PO HS ( Reported) Escitalopram Oxalate (Lexapro) 5 Mg Tablet 10 MG PO DAILY (Reported) Levofloxacin (Levaquin) 750 Mg Tablet 750 MG PO DAILY Prescribed by: ANN WILL MD Lisinopril / HCTZ 20-12.5 mg (Lisinopril / HCTZ 20-12.5 mg) 1 Each Tablet 1 EACH PO DAILY (Reported) Metronidazole (Metronidazole) 500 Mg Tablet 500 MG PO TID Prescribed by: ANN WILL MD Omeprazole (Omeprazole) 20 Mg Capsule.dr 20 MG PO DAILY (Reported) Pravastatin (Pravachol) 40 Mg Tablet 40 MG PO HS (Reported) As needed Clonazepam (Clonazepam) 0.5 Mg Tablet 0.5 MG PO DAILY PRN PRN For Anxiety ( Reported) Miscellaneous Medications Calcium Carbonate/Vitamin D3 (Calcium 500 + Vit D Caplet) 1 Each Tablet 1 EACH PO (Reported) Additional med instructions Please continue two antibiotics for 10 more days take Levaquin 750mg daily take metronidazole 500mg three times per day Followup Plan Disposition: home Follow-up plan Please follow up with your doctor Jose Marroquin in 2weeks, Please follow up with GI doctor as scheduled for colonoscopy, endoscopy Discharge Diet: No restrictions Discharge Activity: No restrictions Patient Instructions You were hospitalized with abdominal pain, found to have diverticulitis, therefore treated with antibiotics and responded well Please follow medicine instruction as above Follow-up with PCP in: 1 week Time spent 65min Ann Will MD Jun 21, 2016 21:02
== END 2016-06-21 12:45 | disposition home or self-care (01) | DRG 392 ==
LOC: SED 19:29 → MOC 23:42
PROVIDERS: ADMIT Internal Medicine; ATTEND Internal Medicine
DX: K57.92 Diverticulitis of intestine, part unspecified, without perforation or abscess without bleeding (principal); N17.9 Acute kidney failure, unspecified; I10 Essential (primary) hypertension; K21.9 Gastro-esophageal reflux disease without esophagitis; E78.5 Hyperlipidemia, unspecified; G47.33 Obstructive sleep apnea (adult) (pediatric); F41.9 Anxiety disorder, unspecified; K57.32 Diverticulitis of large intestine without perforation or abscess without bleeding; E83.52 Hypercalcemia; Z79.82 Long term (current) use of aspirin; Z95.0 Presence of cardiac pacemaker

== ENCOUNTER 2016-07-15 11:00 | Day surgery (SDC) | payer OTHER ==
[~2016-07-15] VITALS: Ht 171.4 cm; Wt 121.0 kg
[~2016-07-15 11:00] MED LIST changes: +ASPI-973 PO; -ASPI325T32 PO; +ATEN25TA PO; -ATEN50TA PO; -CALC-1034 PO; +CALC-78 PO; +CHOL100043 PO; +ESCI5TAB PO; -IBUP400T22 PO; +LEVO750T9 PO; -LISI-567 PO; +LISI1TAB9 PO; +Lactated Ringer's 1,000 ML IV ONE; +METR500T19 PO; +OMEP20CA11 PO; -OMPR20CCR PO; -POLY17PO6 PO; -PROP20TA5 PO; -TRIA1TAB2 PO; -VENL75CA PO
[2016-07-15] MEDS ORDERED: Lidocaine PF 1% 30 mL Inj ONE (11:01)
[2016-07-15] MEDS ORDERED: Propofol 10,000 mCg/mL 20 mL Inj ONE (11:01)
[2016-07-15 11:39] VITALS: BP 119/82; PULSE 76; RESP 15; O2SAT 97
[2016-07-15] MEDS ORDERED: Lactated Ringer's 1,000 ML IV SCH (12:26)
--- NOTE | 2016-07-15 12:26 | PCM.HPANE ---
Patient Data Date of Service: Jul 15, 2016 Surgeon Admitting Provider: Attending Provider:Alli Neewll MD Primary Care Physician:Wilberto Mcdaniels Other Provider:Sindy Mendez Anesthesia Reason for Visit Diverticulitis, Dysphagia Ht/WT & BMI Height (Feet): 5 Height (Inches): 7.5 Weight (Kilograms): 121 Body Mass Index 41.00 Allergies Coded Allergies: No Known Drug Allergies (Verified Allergy, Unknown, 07/14/16) Past Anesthesia History Anesthesia History: Denies:: Anesthesia Reactions, Malignant Hyperthermia Diabetes History Hx Diabetes?: No MRSA MRSA: No Medications Blood Thinner: Aspirin Last Dose Blood Thinner: Jul 15, 2016 Active Scripts Metronidazole 500 Mg [id number] Mg PO TID 10 Days Ref 0 Prov:Ann Lowry MD 06/21/16 Reported Medications Cholecalciferol (Vitamin D3) (Vitamin D)1,000 Unit Tablet3,000 Unit PO HS #1 BOTTLE Ref 0 06/18/16 Calcium Carbonate/Vitamin D3 (Calcium 500 + Vit D Caplet)1 Each Tablet1 Each PO 06/18/16 Escitalopram Oxalate (Lexapro)5 Mg [id number] Mg PO DAILY 30 Days Ref 0 06/18/16 Lisinopril / HCTZ 20-12.5 mg 1 Each Tablet1 Each PO DAILY Ref 0 06/18/16 Omeprazole 20 Mg Capsule.dr20 Mg PO DAILY Ref 0 06/18/16 Aspirin 81 Mg Sjmtft44 Mg PO DAILY Ref 0 06/18/16 Atenolol 25 Mg Czflkn17 Mg PO DAILY #30 TABLET Ref 0 06/18/16 Clonazepam 0.5 Mg Tablet0.5 Mg PO DAILY PRN For Anxiety Ref 0 08/24/15 Pravastatin (Pravachol)40 Mg Xtewdg27 Mg PO HS Ref 0 08/24/15 Discontinued Scripts Levofloxacin (Levaquin)750 Mg Vlfgcw638 Mg PO DAILY 10 Days Prov:nAn Lowry MD 06/21/16 History History of ENT Problems?: Yes HEENT History: Positive for:: Sinus Problem (Rhinitis at work) Denies:: Cataracts Dysphagia Hx of Heart Problems?: Yes Cardiovascular History: Positive for:: Cardiac Surgery (Open heart @ 5yrs old : valve repair. Asymptomatic since. Now with pacemaker) Heart Murmur Hypertension Irregular Heartbeat Pacemaker Denies:: Chest Pain Congestive Heart Failure (denies. ) Edema Thrombophlebitis Hx of Respiratory Problem?: Yes Respiratory History: Positive for:: Dyspnea (occasional) Denies:: Asthma COPD Chest Surgery Emphysema Hemoptysis Pneumonia Tuberculosis Hx Neurologic Problems?: No Neurological History: Positive for:: Dizziness (occ) Headaches Denies:: Alzheimer's Disease CVA Dementia Parkinson's Disease Seizures Hx of GI Problems?: Yes Gastrointestinal History: Positive for:: Diverticulitis Gastroesphageal Reflux Heartburn Hiatal Hernia Liver Disease (FATTY LIVER) Denies:: Gastrointestinal Bleeding Hepatitis Rectal Bleeding Hx of Problems?: No Genitourinary History: Denies:: HX of Hemodialysis Kidney Stones Urinary Tract Infection HX of Peritoneal Dialysis: No Female Hx: Denies:: Currently Endometriosis Pelvic Inflammatory Problems with Breasts? Hx Musculoskeletal Problems?: Yes Musculoskeletal History: Positive for:: Back Injury (low back) Denies:: Joint Replacement Musculoskeletal Trauma Hx of Psycho/Social Problems?: Yes Psycho Social History: Positive for:: Anxiety Hx Depression Denies:: Bipolar Disorder Suicide Attempt Hx Surgeries?: Yes (pacemaker, valve repair , parital hysterectomy, OPEN HEART IN YOUTH) Hx Any Other Health Problems?: Yes Other History: Denies:: Cancer Endocrine Disease Hospitalization Thyroid Disease History Blood Transfusions: Positive for:: Blood Transfusions Denies:: Blood Transfuse Reaction Hx Diabetes: No Hx Alcohol Use: Yes (occasional)Hx Substance Use: No Smoking Status: Never Smoker Have You Smoked inLast 12 mo: No Stop/Bang Treated for Sleep Apnea?: Yes Do You Have a CPAP Machine?: Yes RYDER Risk Assessment: High Risk, =/>3 Yes RYDER Category 4 OutPt Procedure: Yes Risk Assessment Category Category 1A: Patient has history of documented sleep apnea, and HAS NOT received any narcotic, sedative or anesthesia administration during this stay. Category 1B: Patient has history of documented sleep apnea, and HAS received any narcotic , sedative or anesthesia administration during this stay Category 2: Patient has SUSPECTED Obstructive Sleep Apnea, and HAS received any narcotic , sedative or anesthesia administration during this stay. Category 3: Patient has SUSPECTED Obstructive Sleep Apnea and HAS NOT received narcotic, sedative or anesthesia administration during this stay. Category 4: Outpatient in Procedural Areas with known sleep apnea or who screen positive for High Risk via the STOP/BANG questionnaire. Exam Exam Vital Signs Vital Signs Date Time Temp Pulse Resp B/P Pulse Ox O2 Delivery O2 Flow Rate FiO2 07/15/16 11:39 76 15 119/82 97 Room Air General Appearance: Alert, Oriented X3, Cooperative HEENT/AIRWAY: MP 2, Neck Movement (Full, slighly thick), Mouth Opening Lungs: Clear to Auscultation, Normal Air Movement Heart: Regular Rate/Rhythm, Normal S1, Normal S2 Meds/Labs/Diagnostics Additional Information Recs from cardiology for PM management Plan Impression Patient chart reviewed, patient interviewed and anesthestic plan with risks, benefits, and alternatives discussed, and informed consent obtained. NPO Status: > 2 hours ASA Physical Status: ASA3 Severe Disease Anesthetic Plan: MAC Bene/Risks/Altern/Consents: Yes HP Complete Prior to Induction: Yes Ashutosh Nick MD Jul 15, 2016 12:26
[2016-07-15] MEDS ORDERED: Ondansetron 2 mg/mL 2 mL Inj IVPUSH PRN (12:30)
[2016-07-15 13:04] VITALS: BP 103/65; PULSE 73; RESP 13; O2SAT 97
--- NOTE | 2016-07-15 13:11 | PCM.ANEP1 ---
Post Anesthesia Phase 1 PACU Phase 1 Assessment Date of Service: Jul 15, 2016 Vital Signs Vital Signs Date Time Temp Pulse Resp B/P Pulse Ox O2 Delivery O2 Flow Rate FiO2 07/15/16 13:04 73 13 103/65 97 Room Air 07/15/16 11:39 76 15 119/82 97 Room Air Anesthetic Administered: MAC Level of Alertness: Awake, talking WALTON's with Equal Strength: Yes Pain: No Nausea or Vomiting: No Oxygen Delivery: Room Air Lungs: Normal Air Movement Ashutosh Nick MD Jul 15, 2016 13:11
[2016-07-15 13:14] VITALS: BP 109/76; PULSE 67; RESP 14; O2SAT 97
--- NOTE | 2016-07-15 13:17 | PCM.ANEP2 ---
Post Anesthesia Evaluation ASA/CMS Post Anesthesia Date of Service: Jul 15, 2016 VS in Patient's Normal Range?: Yes Resp Stable; Airway Patent?: Yes CV Function & Hydration Stable: Yes Mental Status Recovered?: Yes Pain control Satisfactory?: Yes N/V Control Satisfactory?: Yes Ashutosh Nick MD Jul 15, 2016 13:17
[2016-07-15 13:22] VITALS: BP 121/74; PULSE 62; RESP 14; O2SAT 99
--- NOTE | 2016-07-15 14:51 | ENDO ---
[address] [address] ENDOSCOPY PROCEDURE PATIENT: DINESH SAHU : 1960 MR#: [id number] ADMIT: 07/15/2016 JOB ID: [id number] DATE OF SERVICE: 07/15/2016 TYPE OF OPERATION: 1. Esophagogastroduodenoscopy with biopsy, esophageal dilatation and polypectomy. 2. Colonoscopy. PREOPERATIVE DIAGNOSIS(ES): 1. Gastroesophageal reflux disease. 2. Dysphagia. 3. Diverticulitis. POSTOPERATIVE DIAGNOSIS(ES): 1. Large hiatal hernia. 2. Multiple gastric polyps, removed by cold biopsy forceps. 3. Diverticulosis, moderate, in the sigmoid, transverse and descending colon. 4. Small internal hemorrhoids. ANESTHESIA: Monitored anesthesia care. COMPLICATIONS: None. BLOOD LOSS: Minimal. DESCRIPTION OF PROCEDURE: After risks and benefits explained to the patient, informed consent was obtained. After anesthesia administered, upper endoscope was then inserted in the mouth and intubated into esophagus, stomach, second portion of duodenum. Mucosa carefully examined. After procedure was done, the scope withdrawn and procedure terminated. Colonoscope was then inserted from rectum to cecum. Mucosa carefully examined. Prep of the patient was excellent. After the procedure was done, the scope withdrawn and procedure terminated. FINDINGS: Upon inspection of the esophagus, esophagus was normal without masses, ulcers, lesions. Z-line located 33 cm from incisors. Upon entering the stomach, there were no masses, ulcers, or lesions that were seen. Retroflexion showed a large hiatal hernia. Duodenal bulb, first and second portions normal. Biopsies taken of the antrum, body of the stomach, and mid and distal esophagus. There were also multiple gastric polyps seen in the body which were removed by cold biopsy forceps. Afterwards, a TTS CRE balloon dilatation was performed at 20 mm with good mucosal tear at the distal esophagus. Upon inspection of the anus, no masses, hemorrhoids, ulcers, or fissures that were seen. Throughout the entire examination, there was moderate sigmoid, descending colon and transverse colon diverticulosis. No polyps or masses were seen. Retroflexion showed small internal hemorrhoids. IMPRESSION: 1. Small internal hemorrhoids. 2. Moderate diverticulosis in sigmoid, descending and transverse colon. 3. Large hiatal hernia. 4. Status post successful TTS balloon dilatation in the distal esophagus to 20 mm with good mucosal tear. RECOMMENDATION: 1. Await pathology results. 2. Repeat colonoscopy in 10 years if there is no history of polyps in the past. 3. High-fiber diet. 4. Follow up with Drea Jerome PA-C in clinic.
--- NOTE | 2016-07-18 14:24 | PATH ---
SURGICAL PATHOLOGY Attending Physician:Alli Newell MD CASE STATUS: Signed Out PATIENT NAME: DINESH SAHU PID: [id number] : 1960 DATE COLLECTED:07/15/2016 20:16 SPECIMEN: 1: Stomach, Antrum, Biopsy 2: Gastric, Biopsy 3: Esophagus, Biopsy 4: Esophagus, Biopsy 5: Stomach, Polyp, Biopsy CLINICAL HISTORY: 1). ANTRUM BIOPSY 2). GASTRIC BODY BIOPSY 3). DISTAL ESOPHAGUS BIOPSY 4). MID ESOPHAGUS BIOPSY 5). GASTRIC POLYP FINAL DIAGNOSIS: 1.ANTRUM BIOPSY: ANTRAL MUCOSA WITH NO DIAGNOSTIC ALTERATIONS. Negative for Helicobacter organisms. Negative for intestinal metaplasia. Negative for dysplasia and malignancy. 2.GASTRIC BODY BIOPSY: BODY-TYPE MUCOSA WITH NO DIAGNOSTIC ALTERATIONS. Negative for Helicobacter organisms. Negative for intestinal metaplasia. Negative for dysplasia and malignancy. 3.DISTAL ESOPHAGUS BIOPSY: SQUAMOUS MUCOSA WITH NO DIAGNOSTIC ALTERATIONS. Negative for intestinal/Osuna' s metaplasia. Negative for dysplasia and malignancy. 4MID ESOPHAGUS BIOPSY: SQUAMOUS MUCOSA WITH NO DIAGNOSTIC ALTERATIONS. Negative for intestinal/Osuna' s metaplasia. Negative for dysplasia and malignancy. 5.GASTRIC POLYP: FUNDIC GLAND POLYP. Negative for intestina metaplasia. Negative for dysplasia and malignancy. ICD10 code K31.7 GROSS DESCRIPTION: The specimen is received in five formalin filled containers labeled with the patient's name. 1). The specimen is sublabeled "antrum" and consists of 2 portions of tissue which aggregate to 0.5 x 0.3 x 0.2 CM. The specimen is entirely submitted in cassette 1A. 2). The specimen is sublabeled "gastric body" and consists of 2 portions of tissue which aggregate to 0.4 x 0.4 x 0.3 CM. The specimen is entirely submitted in cassette 2A. 3). The specimen is sublabeled "distal esophagus" and consists of 2 portions of tissue which aggregate to 0.3 x 0.3 x 0.2 CM. The specimen is entirely submitted in cassette 3A. 4). The specimen is sublabeled "midesophagus" and consists of a 0.3 x 0.2 x 0.2 CM portion of tissue which is entirely submitted in cassette 4A. 5). The specimen is sublabeled "gastric polyps" and consists of a 0.3 x 0.3 x 0.2 CM portion of tissue which is entirely submitted in cassette 5A. 07/15/2016 DAC MICRO DESCRIPTION: See diagnosis. ICD-9 CODES: CPT CODES: 1: 72854 2: 59106 3: 71937 4: 74950 5: 44516 Electronically Signed Out Santa Vinson MD [facility] [address], [place] [address] Technical component performed at [facility], [address], [place], [address]
== END 2016-07-15 23:59 | disposition home or self-care (01) ==
LOC: END 11:00
PROVIDERS: ATTEND Internal Medicine Gastroenterology
DX: K57.32 Diverticulitis of large intestine without perforation or abscess without bleeding (principal); K64.8 Other hemorrhoids; K31.7 Polyp of stomach and duodenum; K21.9 Gastro-esophageal reflux disease without esophagitis; K44.9 Diaphragmatic hernia without obstruction or gangrene; R13.10 Dysphagia, unspecified; Z79.82 Long term (current) use of aspirin; Z79.899 Other long term (current) drug therapy
CPT/HCPCS: 43239; 43249; 45378; 88305; J7120

== ENCOUNTER 2016-10-13 04:35 | Emergency (ER) | payer OTHER ==
[~2016-10-13] VITALS: Ht 170.2 cm; Wt 115.9 kg
[~2016-10-13 04:35] MED LIST changes: -LEVO750T9 PO; -Lactated Ringer's 1,000 ML IV ONE
[2016-10-13 04:38] VITALS: BP 150/98; PULSE 73; RESP 16; O2SAT 99
--- NOTE | 2016-10-13 05:08 | ED.REPORT ---
HPI-NVD Date of Service Oct 13, 2016 ED Provider: Jakob Donaldson MD Patient is a 56 year old female with a history of hypertension, diverticulitis and a pacemaker who presents to the ED complaining of upper abdominal pain for the past week. Associated symptoms include nausea, vomiting, dyspnea on exertion and low back pain. This morning she woke up with dizziness, a dry mouth and worsening pain. She states that her stomach feels bloated. The patient has an appointment later today for these concerns and to have her pacemaker evaluated but decided to come to the ED due to the worsening pain. Nursing Notes Stated Complaint: VOMITING,LIGHT HEADED Chief Complaint: Female Abdominal Pain Nursing Notes Reviewed: Yes Allergies: Coded Allergies: No Known Drug Allergies (Verified Allergy, Unknown, 10/13/16) Scheduled Aspirin (Aspirin) 81 Mg Tablet 81 MG PO DAILY Atenolol (Atenolol) 25 Mg Tablet 25 MG PO DAILY Cholecalciferol (Vitamin D3) (Vitamin D) 1,000 Unit Tablet 3,000 UNIT PO HS Escitalopram Oxalate (Lexapro) 5 Mg Tablet 10 MG PO DAILY Lisinopril / HCTZ 20-12.5 mg (Lisinopril / HCTZ 20-12.5 mg) 1 Each Tablet 1 EACH PO DAILY Metronidazole (Metronidazole) 500 Mg Tablet 500 MG PO TID Omeprazole (Omeprazole) 20 Mg Capsule.dr 20 MG PO DAILY Pravastatin (Pravachol) 40 Mg Tablet 40 MG PO HS Scheduled PRN Clonazepam (Clonazepam) 0.5 Mg Tablet 0.5 MG PO DAILY PRN PRN For Anxiety Miscellaneous Medications Calcium Carbonate/Vitamin D3 (Calcium 500 + Vit D Caplet) 1 Each Tablet 1 EACH PO General Time Seen by MD: 05:00 Chief Complaint Abd pain, constant Hx Obtained From: Patient Arrived By: Walk-in Onset Occurred: 1 week ago Symptom Duration: Since onset Location: : Abdomen upper Radiation: : To back Severity: Current: Moderate Recent Healthcare: Recent doctor visit, Recent hospitalization Past Medical History Past Medical History Hiatal hernia Hyperlipidemia Hypertension Anxiety GERD Depression Diverticulitis Complete heart block s/p Dual chamber pacemaker Obesity Congenital heart defect: repaired age 5 Obstructive Sleep Apnea Past Surgical History Partial hysterectomy (10/2009) Open heart surgery to repair VSD (5 years old) Dual chamber pacemaker placed September 25, 2012 Smoking History Never Smoker Social History Alcohol Use: Denies alcohol use Drug Use: Denies drug use Other Social History: Good social support, Local resident Ambulatory Status Independent Review of Systems Constitutional: Denies: Chills, Fever GI: Reports: Abdominal pain, Nausea, Vomiting Neurologic: Reports: Dizziness Complete sys rev & neg: except as marked. Respiratory: Reports: Shortness of breath, Denies: Non-productive cough Cardiovascular: Reports: Dyspnea on exertion Musculoskeletal: Reports: Back pain Physical Exam Initial Vital Signs Vital Signs (First) Date Time Temp Pulse Resp B/P Pulse Ox O2 Delivery O2 Flow Rate FiO2 10/13/16 04:38 36.5 73 16 150/98 99 Room Air Initial VS: Reviewed, Vital signs abnormal General/Constitutional: Awake, Alert Behavior: Positive: Anxious Abdomen: Atraumatic, Soft Tenderness/Guarding/Rebound: Positive: Tender LUQ..., Tender RUQ..., Tender epigastric Respiratory / Chest: Atraumatic, Breath sounds NL, Breath sounds = bilat, No respiratory distress Cardiovascular: Heart rate NL, Regular rhythm, Heart sounds NL Skin: Atraumatic, Color NL, No rash, Warm, Dry Neurologic: Oriented X3, Speech NL, No motor deficits, No sensory deficits Head / Eyes: Atraumatic, Normocephalic, PERRL, EOMI Lower Extremity / Pelvis / MS: Atraumatic, Full range of motion trace pitting edema bilateral ankles Psychiatric: Affect NL, Mood NL Interpretation & Diagnostics Lab Results Interpretation Result Diagram: 10/13/16 0515 Test 10/13/16 04:55 10/13/16 05:00 10/13/16 05:15 Hold Fried Top Tube Received (Received) Urine Color Yellow (YELLOW) Urine Appearance Clear (CLEAR,HAZY) Urine pH 7.0 (5.0-8.0) Urine Specific [place] 1.005 (1.003-1.035) Urine Protein Negativemg/dL (NEG,TRACE) Urine Glucose (UA) Negativemg/dL (NEGATIVE) Urine Ketones Negativemg/dL (NEGATIVE) Urine Occult Blood Negative (NEGATIVE) Urine Nitrite Negative (NEGATIVE) Urine Bilirubin Negative (NEGATIVE) Urine Urobilinogen Normalmg/dL (NORMAL) Urine Leukocyte Esterase Negative (NEGATIVE) Urine RBC 0-2/hpf (0-2) Urine WBC 0-5/hpf (0-5) Urine Epithelial Cells Many/hpf (NONE-MOD) Urine Crystals None seen (NONE SEEN) Urine Bacteria Many/hpf (NONE-FEW) Urine Hyaline Casts None/lpf (NONE) Urine Granular Casts None seen (NONE SEEN) Urine Waxy Casts None seen (NONE SEEN) Urine Red Blood Cell Casts None seen (NONE SEEN) Urine White Blood Cell Casts None seen (NONE SEEN) Urine Mucus None seen (None Seen) Urine Trichomonas None seen (NONE SEEN) Urine Yeast None (NONE SEEN) Urinalysis Comment None Urine Culture Reflexed Indicated White Blood Count 8.0th/mm3 (3.8-10.1) Red Blood Count 4.73mil/mm3 (3.90-5.20) Hemoglobin 13.1g/dL (12.0-15.6) Hematocrit 40.2% (35.0-46.0) Mean Corpuscular Volume 85.0fL (81-100) Mean Corpuscular Hemoglobin 27.7pg (27.0-35.0) Mean Corpuscular Hemoglobin Concent 32.6% (32.0-37.0) Red Cell Distribution Width 16.2% (12.3-15.4) Platelet Count 369bil/L (150-400) Neutrophils (%) (Auto) 49.9% (40-74) Lymphocytes (%) (Auto) 41.1% (14-46) Monocytes (%) (Auto) 5.9% (4-12) Eosinophils (%) (Auto) 2.7% (0-5) Basophils (%) (Auto) 0.2% (0-3) ECG Interpretation ECG Interpretation: atrial-sensed ventricular-paced complexes. Time: 05:32 Interpreted by: ED physician Normal ECG Interpretation: Normal rate (70) Re-Eval/Medical Decision Med Decision/Clinical Course 56-year-old female who has had nausea and vomiting and is dehydrated. Workup was initiated by me and her care is now being turned over at change of shift to Dr. Richard Mcarthur Discharge & Departure Shift Change Sign-Out Patient Care Transferred: Yes Discussed Complaint(s): Yes Impression: Primary Impression: Vomiting Vomiting type: unspecified Vomiting Intractability: non-intractable Nausea presence: without nausea Qualified Code: R11.11 - Vomiting without nausea Discharge Condition All VS Reviewed: Yes Condition: Stable Referrals: ZANE TRAORE (PCP) (Family) Care Transferred to: Dr. Mcarthur Care Transferred at: 06:00 Radha Attestation Portions of this note were transcribed by Tyra Polanco. I, Dr. Donaldson personally performed the history, physical exam and medical decision-making; I reviewed and confirmed the accuracy of the information in the transcribed note. Signed by: Radha Veras, 10/13/16 and 0520 copies to: [facility] Jakob Goyal MD Oct 13, 2016 05:08 Josselin Polanco Oct 13, 2016 05:16
[2016-10-13] MEDS ORDERED: 0.9% Sodium Chloride 1,000 ML IV ONE (05:16)
[2016-10-13] MEDS ORDERED: Pantoprazole 4 mg/mL 10 mL Inj IVPUSH ONE (05:20)
[2016-10-13] MEDS ORDERED: Ondansetron 2 mg/mL 2 mL Inj IVPUSH PRN (05:20)
[2016-10-13 05:22] LABS: APPEARANCE,URINE CLEAR (CLEAR,HAZY); COLOR,URINE YELLOW (YELLOW); OCCULT BLOOD,URINE NEGATIVE (NEGATIVE); UROBILINOGEN,URINE NORMAL (NORMAL)
[2016-10-13 05:23] LABS: BASOPHILS % (AUTO) 0.2 % (0-3); EOSINOPHILS % (AUTO) 2.7 % (0-5); MONOCYTES % (AUTO) 5.9 % (4-12); Mean Corpuscular Hemoglobin 27.7 pg (27.0-35.0); NEUTROPHILS % (AUTO) 49.9 % (40-74); Platelet Count 369 bil/L (150-400)
[2016-10-13 06:17] VITALS: BP 148/96; PULSE 70; RESP 18; O2SAT 100
[2016-10-13] MEDS ORDERED: Promethazine Inj 25 MG in 0.9% Sodium Chloride-Pha MIX 100 ML IV ONE (07:50)
[2016-10-13] MEDS ORDERED: OMEP20TA86 PO (08:42)
[2016-10-13] MEDS ORDERED: ONDA8TAB10 PO (08:42)
--- NOTE | 2016-10-13 08:52 | DRSVH ---
PROCEDURE: X-RAY ACUTE ABDOMINAL SERIES ([id number]) INDICATIONS: abd pain and distention TECHNIQUE: One view chest and two views of the abdomen were acquired. COMPARISON: [facility], CT, CT ABD PELVIS W CON, 06/17/2016, 21:55. [facility], CR, XR CHEST 1VW, 10/02/2015, 19:03. FINDINGS: Surgical changes and devices: A cardiac defibrillator/pacer apparatus is seen overlying the left ches t, similar to the prior study. Chest: The heart is enlarged. The pulmonary vasculature is slightly increased. No lobar consolidati on, effusion, or pneumothorax is evident. Retrocardiac density appears to be present, which may repr esent a hiatal hernia versus tortuosity of the aorta. The imaged osseous structures of the chest are age-appropriate. Abdomen: Bowel gas pattern is within normal limits. No air-filled distended small bowel loops are i dentified demonstrating air-fluid levels. Air and stool are seen throughout the colon. No suspiciou s calcifications. Visualized solid organ contours appear normal. Age-appropriate degenerative ruvalcaba es of the lumbar spine are present. The Bones: No suspicious bony lesions. IMPRESSION: 1. No bowel obstruction. 2. Cardiomegaly and mild vascular congestion. No definite pneumonia. Dictated by: Adeel Grimaldo M.D. on 10/13/2016 at 8:46 Approved by: Adeel Grimaldo M.D. on 10/13/2016 at 8:50
[2016-10-13] MEDS ORDERED: PROM25TA14 PO (08:57)
[2016-10-13 09:12] VITALS: BP 121/82; PULSE 79; RESP 16; O2SAT 100
--- NOTE | 2016-10-13 10:49 | DRSVH ---
PROCEDURE: US ABDOMEN INDICATIONS: RUQ/Epigastric pain TECHNIQUE: Real-time scanning was performed of the abdominal and retroperitoneal organs, with image documentatio n. COMPARISON: None. FINDINGS: This study is limited by body habitus. Liver length: 17.71 cm Gallbladder Wall Thickness: 2.80 mm Spleen length: 11.29 cm Right kidney length: 12.43 cm Left kidney length: 11.90 cm Liver: The liver demonstrates prominent size. The liver demonstrates generalized increased echogenic ity. This decreases ultrasound sensitivity for detection of hepatic masses. Gallbladder: Poorly seen. No findings of gallstones or sludge are seen. The gallbladder wall is not thickened, measuring 3 mm or less. No specific pericholecystic fluid is seen. The sonographic Angelika y sign is negative. Biliary ducts: Not seen. Pancreas: Visualized portions of the pancreas are sonographically normal. Spleen: Spleen is normal in size and homogeneous in echotexture. Kidneys: Kidneys are normal in size and echotexture. No hydronephrosis or nephrolithiasis. No niranjan d masses. Aorta: The aorta is not well-seen. The visualized midportion demonstrates normal caliber. Iliacs: Not well-seen. IVC: Intrahepatic inferior vena cava is patent. Miscellaneous: No free abdominal fluid. IMPRESSION: No significant abnormality can be seen on the gallbladder. Enlarged, fatty liver. Limited study, secondary to body habitus. Dictated by: Nabil Pradhan M.D. on 10/13/2016 at 9:45 Approved by: Nabil Pradhan M.D. on 10/13/2016 at 9:48
== END 2016-10-13 09:13 ==
LOC: SED 04:35
DX: R10.13 Epigastric pain (principal); R11.2 Nausea with vomiting, unspecified; R06.02 Shortness of breath; E86.0 Dehydration; I10 Essential (primary) hypertension; E78.5 Hyperlipidemia, unspecified; F41.9 Anxiety disorder, unspecified; K21.9 Gastro-esophageal reflux disease without esophagitis; F32.9 Major depressive disorder, single episode, unspecified; I44.2 Atrioventricular block, complete; E66.9 Obesity, unspecified; G47.33 Obstructive sleep apnea (adult) (pediatric); Z87.19 Personal history of other diseases of the digestive system; Z95.0 Presence of cardiac pacemaker; Z68.41 Body mass index [BMI] 40.0-44.9, adult; Z87.74 Personal history of (corrected) congenital malformations of heart and circulatory system; Z79.82 Long term (current) use of aspirin
CPT/HCPCS: 36415; 74022; 76700; 80053; 81000; 83690; 83735; 83880; 85025; 87086; 87088; 93005; 93288; 96361; 96374; 96375; 99285; J2405; J2550; J7030